=== PATIENT | female | born 1950 | race Hispanic/Latino ===

== ENCOUNTER 2021-06-04 14:23 | Emergency (ER) | payer MEDICARE ==
[~2021-06-04] VITALS: Ht 154.9 cm; Wt 65.3 kg
[2021-06-04 15:42] LABS: BASOPHILS # (AUTO) 0.1 (0.0-0.1); BASOPHILS % 0.8 % (0.0-1.0); EOSINOPHILS % 0.4 % (0.0-6.0); HEMATOCRIT 40.4 % (34.2-44.1); HEMOGLOBIN 13.2 g/dL (12.0-16.0); LYMPHOCYTES % 10.9 % (18.0-39.1); MEAN CORPUSCULAR HEMOGLOBIN 28.6 pg (28-32); MEAN CORPUSCULAR HGB CONC 32.7 g/dL (31-35); MEAN CORPUSCULAR VOLUME 87.4 fL (81-99); MONOCYTES # (AUTO) 0.7 (0.2-0.8); NEUTROPHILS # (AUTO) 7.5 (2.1-6.9); NEUTROPHILS % 80.4 % (38.7-80.0); PLATELET COUNT 242 x10e3/uL (140-360); RED BLOOD COUNT 4.62 x10e6/uL (3.6-5.1); RED CELL DISTRIBUTION WIDTH 12.6 % (11.7-14.4)
[2021-06-04 16:20] LABS: ALBUMIN 3.8 g/dL (3.5-5.0); ALBUMIN/GLOBULIN RATIO 1.1 (0.8-2.0); ANION GAP 13.5 mmol/L (8-16); CALCIUM 9.6 mg/dL (8.4-10.2); CREATININE, SERUM 0.73 mg/dL (0.57-1.11); POTASSIUM 3.5 mmol/L (3.5-5.1)
[2021-06-04] MEDS ORDERED: MECLIZINE HCL 12.5 MG TAB PO ONE (16:30)
[2021-06-04] MEDS ORDERED: MECLIZINE HCL12.5 MG PO (16:54)
[2021-06-04] MEDS ORDERED: SODIUM CHLORIDE 0.9% 100 ML ONE (18:20)
[2021-06-04] MEDS ORDERED: IOPAMIDOL 370 MG/ML 200 ML INFUS..BTL INJ ONE (18:20)
== END 2021-06-04 18:49 | disposition home or self-care (01) ==
LOC: ER 14:44
DX: R42 Dizziness and giddiness (principal); R11.2 Nausea with vomiting, unspecified; E11.65 Type 2 diabetes mellitus with hyperglycemia; I10 Essential (primary) hypertension; E78.5 Hyperlipidemia, unspecified; K21.9 Gastro-esophageal reflux disease without esophagitis; F32.A Depression, unspecified
CPT/HCPCS: 36415; 70450; 70496; 70498; 80053; 84484; 85025; 93005; 99284; J7050; J8597; Q9967

== ENCOUNTER → 2023-08-10 | Outpatient (REF) | payer MEDICARE ==
[~2023-08-10] MED LIST: FAMOTIDINE20 MG PO; GABAPENTIN300 MG PO; LEXAPRO20 MG PO; LIDOCAINE PAIN1 EACH EXT; LIPITOR10 MG PO; LOSARTAN-HCTZ1 EACH PO; MECLIZINE HCL12.5 MG PO; METFORMIN HCL500 MG PO; METHOCARBAMOL750 MG PO; NAPROSYN500 MG PO; NAPROXEN250 MG PO; NEURONTIN300 MG PO; OMEGA 3 1,0001 EACH PO; TRAZODONE HCL50 MG PO; VIT D PO
== END ==
LOC: US 07:19
PROVIDERS: ATTEND Nurse Practitioner Gerontology
DX: R10.11 Right upper quadrant pain (principal); I73.9 Peripheral vascular disease, unspecified
CPT/HCPCS: 76700; 77080; 93925; 93970